=== PATIENT | female | born 1955 | race Caucasian/White ===

== ENCOUNTER 2023-09-24 01:01 | Inpatient (IN) ==
[2023-09-24 01:33] LABS: Venous Bicarbonate HCO3 22.2 mmol/L (24-28)
[2023-09-24 01:35] LABS: ABS Lymphocytes 0.2 10^3/uL (1.0-4.8); ABS Neutrophils 1.8 10^3/uL (1.5-7.6); Eosinophil % 1.4 %; Hematocrit 35.5 % (35-45); Hemoglobin 12.3 g/dL (11.5-14.3); Lymphocyte % 8.8 %; Mean Corpuscular Hemoglobin 36.1 pg (27-33); Mean Corpuscular Hgb Conc 34.8 g/dL (31-36); Mean Corpuscular Volume 103.8 fL (80-97); Nucleated Red Blood Cells % 0.1 %/100WBC (0.0-0.8); Platelet Count 209 10^3/uL (150-450); Red Blood Count 3.42 10^6/uL (3.63-4.92); Red Cell Distribution Width 13.6 % (12-17); White Blood Count 2.1 10^3/uL (3.8-11.8)
[2023-09-24 02:00] LABS: High Sens Troponin Baseline 47 pg/mL (<15)
[2023-09-24 02:29] LABS: ALT 11 U/L (7-52); Albumin 3.7 g/dL (3.2-5.2); Albumin/Globulin Ratio 1.2 (1-3); Alkaline Phosphatase 55 U/L (35-149); Anion Gap 17 mmol/L (2-16); Blood Urea Nitrogen 14 mg/dL (6-24); CO2 Carbon Dioxide 16 mmol/L (22-32); Calcium 8.7 mg/dL (8.6-10.3); Chloride 103 mmol/L (101-111); Creatinine, Serum 1.39 mg/dL (0.51-0.95); Globulin 3.1 g/dL (2-4); Glucose 127 mg/dL (70-100); Sodium 136 mmol/L (135-145); Total Bilirubin 1.2 mg/dL (0.2-1.0); Total Protein 6.8 g/dL (6.4-8.9); eGFR CKD-EPI 41.1 (>60)
[2023-09-24] MEDS: Piperacillin/Tazobac 3.375 BAG 3.375 GM/100 ML BAG IV ONE (02:45)
[2023-09-24] MEDS: Lactated Ringers SEPSIS* BAG 2,060 ML IV ONE (02:45)
[2023-09-24 02:50] LABS: High Sensitivity Troponin 1 Hr 106 pg/mL (<15)
[2023-09-24 04:11] LABS: Potassium Redraw 3.4 mmol/L (3.5-5.0)
[2023-09-24] MEDS: Iodixanol (CONTRAST) 320 MG/ML 100 ML SDV IV ONE (04:58)
[2023-09-24 05:27] LABS: High Sensitivity Troponin 3 Hr 203 pg/mL (<15)
[2023-09-24] MEDS ORDERED: Albuterol HFA INHALER 8 gm MDI INH PRN (08:54)
[2023-09-24 09:40] LABS: Magnesium 1.6 mg/dL (1.9-2.7)
[2023-09-24] MEDS: Potassium Chlor 20 meq TAB.ER PO ONE (09:53)
[2023-09-24] MEDS: CMCS:Letrozole 2.5 MG TAB (NF) PO SCH (10:53)
[2023-09-24] MEDS: CMCS:FLUTICAS/UMECLI/VILANT 100-62.5-25 MDI (NF) INH SCH (10:54)
[2023-09-24] MEDS: PALBOCICLIB 125 MG PO SCH (10:58)
[2023-09-24] MEDS: Fluticasone HFA 110 mcg(NF) MDI INH SCH (14:03)
[2023-09-24] MEDS ORDERED: Albuterol/Ipratropium NEB.SOL (2.5/0.5 MG) 3 ML NEB.SOLN INH PRN (16:07)
[2023-09-24] MEDS: Magnesium Sulfate 2 gm BAG 2 GM/50 ML BAG IVPB ONE (16:27)
[2023-09-24] MEDS: cefTRIAXone 2 gm/50 mL D5W 2 GM/50 ML BAG IV SCH (19:09)
[2023-09-24] MEDS: Enoxaparin 40 MG/0.4 ML SYR SUBCUT SCH (21:16)
[2023-09-25 06:24] LABS: ABS Lymphocytes 0.5 10^3/uL (1.0-4.8); ABS Monocytes 0.3 10^3/uL (0.0-0.9); Eosinophil % 0.3 %; Hematocrit 31.1 % (35-45); Hemoglobin 10.5 g/dL (11.5-14.3); Lymphocyte % 8.2 %; Mean Corpuscular Hemoglobin 35.5 pg (27-33); Mean Corpuscular Hgb Conc 33.9 g/dL (31-36); Mean Corpuscular Volume 104.8 fL (80-97); Mean Platelet Volume 9.5 fL (7.5-11.2); Platelet Count 203 10^3/uL (150-450); Red Blood Count 2.97 10^6/uL (3.63-4.92); Red Cell Distribution Width 13.8 % (12-17); White Blood Count 5.8 10^3/uL (3.8-11.8)
[2023-09-25 06:50] LABS: C Reactive Protein 87.14 mg/L (<8.01); Calcium 8.4 mg/dL (8.6-10.3); Creatinine, Serum 1.1 mg/dL (0.51-0.95); Potassium 4.4 mmol/L (3.5-5.0); eGFR CKD-EPI 54.4 (>60)
[2023-09-25 08:02] LABS: Magnesium 2.3 mg/dL (1.9-2.7)
[2023-09-25] MEDS: DOXYcycline 100 MG in NS 0.9% 250 ml 250 ML IVPB SCH (09:08)
[2023-09-25] MEDS ORDERED: Sulfur Hexaflouride MICROSPHR 25 MG VIAL ONE (10:39)
[2023-09-25] MEDS: Sulfur Hexaflouride MICROSPHR 25 MG VIAL IV ONE (10:50)
[2023-09-25 12:44] LABS: Urine Appearance Clear; Urine Bilirubin Negative (Negative); Urine Blood Negative (Negative); Urine Color Light-Yellow; Urine Glucose Negative (Negative); Urine Ketones Negative (Negative); Urine Nitrite Negative (Negative); Urine Protein Negative (Negative); Urine Urobilinogen Negative (Negative); Urine pH 5.5 (5.0-8.0)
[2023-09-25 13:07] LABS: Urine Bacteria Absent /HPF (Absent); Urine Red Blood Cell Trace(0-2/hpf) /HPF (0-Trace); Urine Squamous Epithelial Cell Present /HPF (Absent); Urine White Blood Cell 1+(6-10/hpf) /HPF (0-Trace)
[2023-09-25] MEDS: cefTRIAXone 2 gm/50 mL D5W 2 GM/50 ML BAG IV SCH (17:48)
[2023-09-25] MEDS ORDERED: DOXYcycline 100 MG in NS 0.9% 250 ml 250 ML IVPB SCH (21:00)
[2023-09-27 05:40] LABS: ABS Lymphocytes 0.5 10^3/uL (1.0-4.8); ABS Monocytes 0.2 10^3/uL (0.0-0.9); Eosinophil % 0.5 %; Hemoglobin 11.5 g/dL (11.5-14.3); Lymphocyte % 13.9 %; Mean Corpuscular Hemoglobin 35.2 pg (27-33); Mean Corpuscular Hgb Conc 33.7 g/dL (31-36); Mean Corpuscular Volume 104.3 fL (80-97); Nucleated Red Blood Cells % 0.1 %/100WBC (0.0-0.8); Platelet Count 280 10^3/uL (150-450); Red Blood Count 3.26 10^6/uL (3.63-4.92); White Blood Count 3.7 10^3/uL (3.8-11.8)
[2023-09-27 05:54] LABS: Calcium 8.5 mg/dL (8.6-10.3); Creatinine, Serum 0.94 mg/dL (0.51-0.95); Potassium 4.6 mmol/L (3.5-5.0); eGFR CKD-EPI 65.7 (>60)
[2023-09-27 06:19] LABS: Folate 3.72 ng/mL (5.90-24.80)
[2023-09-27] MEDS ORDERED: Aminophylline 25 MG/ML VIAL ONE (08:14)
[2023-09-27] MEDS ORDERED: Regadenoson 0.4 MG/5 ML SYRINGE ONE (08:15)
[2023-09-27 17:42] LABS: HDL Cholesterol 35.7 mg/dL
[2023-09-28 05:52] LABS: ABS Eosinophils 0.1 10^3/uL (0.0-0.5); ABS Lymphocytes 1.4 10^3/uL (1.0-4.8); ABS Monocytes 0.2 10^3/uL (0.0-0.9); ABS Neutrophils 2.6 10^3/uL (1.5-7.6); Eosinophil % 1.2 %; Hematocrit 34.1 % (35-45); Hemoglobin 11.8 g/dL (11.5-14.3); Lymphocyte % 32.3 %; Mean Corpuscular Hemoglobin 35.8 pg (27-33); Mean Corpuscular Hgb Conc 34.5 g/dL (31-36); Mean Corpuscular Volume 103.6 fL (80-97); Mean Platelet Volume 8.6 fL (7.5-11.2); Nucleated Red Blood Cells % 0.1 %/100WBC (0.0-0.8); Platelet Count 278 10^3/uL (150-450); Red Blood Count 3.29 10^6/uL (3.63-4.92); Red Cell Distribution Width 13.6 % (12-17); White Blood Count 4.3 10^3/uL (3.8-11.8)
[2023-09-28 06:09] LABS: Calcium 8.8 mg/dL (8.6-10.3); Creatinine, Serum 0.93 mg/dL (0.51-0.95); Magnesium 2.1 mg/dL (1.9-2.7); Potassium 4.4 mmol/L (3.5-5.0); eGFR CKD-EPI 66.5 (>60)
[2023-09-28 14:18] VITALS: BP 104/65
== END 2023-09-28 14:50 | disposition home or self-care (01) | DRG 871 ==
LOC: ED 01:01 → EDHOLD 01:01 → OBSVTOIN 08:32 → SUATTDRO 08:32 → MED 09-25 14:56
PROVIDERS: ADMIT Hospitalist; ATTEND Internal Medicine